=== PATIENT | male | born 1950 | race Caucasian/White ===

== ENCOUNTER 2018-05-10 10:18 | Emergency (ER) | payer OTHER ==
[~2018-05-10] VITALS: Ht 177.8 cm; Wt 104.3 kg
[2018-05-10] MEDS ORDERED: SODIUM CHLORIDE 0.9% 1,000 ML IV ONE ×4 (10:40→15:45)
[2018-05-10 11:53] LABS: Basophils # (auto) 0.1 uL; Eosinophils # (auto) 0.2 uL; Eosinophils % (auto) 0.7 % (0.0-7.0); Lymphocytes # (auto) 1.8 uL; Monocytes % (auto) 6.7 % (0.0-12.0); Red Cell Distribution Width 15.5 % (11.8-14.3)
[2018-05-10 11:55] LABS: Basophils % (auto) 0.2 % (0.0-2.0); Hematocrit 27.6 % (41.0-53.0); Hemoglobin 8.7 g/dL (13.5-17.5); Mean Corpuscular Hemoglobin 23.5 pg (28.0-32.0); Mean Corpuscular Hgb Conc. 31.4 g/dL (32.0-36.0); Mean Corpuscular Volume 74.9 fL (80.0-100.0); Monocytes # (auto) 1.5 uL; Neutrophils # (auto) 18.5 uL; Neutrophils % (auto) 84.4 % (37.0-80.0); Platelet Count (auto) 406 10^3/uL (140-450); Red Blood Cells 3.68 10^6/uL (4.5-5.90); White Blood Cell 21.9 10^3/uL (4.4-10.8)
[2018-05-10 12:17] LABS: Albumin 2.5 g/dL (3.4-5.0); BUN/Creatinine Ratio 12.3; Calcium 7.7 mg/dL (8.5-10.1)
[2018-05-10 12:19] LABS: Lactic Acid w/Reflex 3.8 mmol/L (0.4-2.0)
[2018-05-10 12:20] LABS: Bilirubin, Total 1.1 mg/dL (0.2-1.0); Total Protein 5.7 g/dL (6.4-8.2)
[2018-05-10 12:21] LABS: INR 1.28 (0.9-1.15); Prothrombin Time 13.5 sec (9.27-12.13)
[2018-05-10] MEDS ORDERED: CLINDAMYCIN 900MG IV 50 ML IV ONE (13:00)
[2018-05-10] MEDS ORDERED: cefTRIAXone 1GM/10ml IVPUSH 10 ML IV ONE (13:00)
[2018-05-10] MEDS ORDERED: IOHEXOL 350 MG/ML 100ML IJ ONE (13:24)
[2018-05-10 14:38] LABS: Basophils # (auto) 0 uL; Eosinophils # (auto) 0 uL; Monocytes # (auto) 1.1 uL; Neutrophils # (auto) 15.3 uL; White Blood Cell 16.9 10^3/uL (4.4-10.8)
[2018-05-10 14:39] LABS: Basophils % (auto) 0.3 % (0.0-2.0); Eosinophils % (auto) 0.1 % (0.0-7.0); Hematocrit 21.8 % (41.0-53.0); Lymphocytes # (auto) 0.5 uL; Lymphocytes % (auto) 2.8 % (10.0-50.0); Mean Corpuscular Hgb Conc. 31.7 g/dL (32.0-36.0); Mean Corpuscular Volume 75.7 fL (80.0-100.0); Monocytes % (auto) 6.4 % (0.0-12.0); Neutrophils % (auto) 90.4 % (37.0-80.0); Platelet Count (auto) 324 10^3/uL (140-450); Red Blood Cells 2.89 10^6/uL (4.5-5.90); Red Cell Distribution Width 15.6 % (11.8-14.3)
[2018-05-10 14:49] LABS: Hemoglobin 6.9 g/dL (13.5-17.5)
[2018-05-10 14:51] VITALS: BP 108/63
== END 2018-05-10 14:54 | disposition short-term general hospital (02) ==
LOC: ER 10:18
DX: A41.9 Sepsis, unspecified organism (principal); D64.9 Anemia, unspecified
CPT/HCPCS: 36415; 36556; 70450; 71045; 71250; 74176; 74177; 80053; 83605; 83880; 85025; 85610; 86850; 86900; 86901; 86920; 87040; 93005; 96361; 96365; 96375; 99291; J0696; J3490; J7030; J7040; P9016; Q9967; 36430